=== PATIENT | female | born 1945 | race Caucasian/White ===

== ENCOUNTER 2024-03-11 07:35 | Day surgery (SDC) | payer OTHER ==
[~2024-03-11] VITALS: Ht 152.4 cm; Wt 54.4 kg
[2024-03-11] MEDS ORDERED: fentaNYL CITRATE/PF 100 MCG/2 ML AMP ONE (10:03)
[2024-03-11] MEDS ORDERED: BENZOCAINE 20% 0.5mL UD SPRAY MM ONE (10:04)
[2024-03-11] MEDS ORDERED: MIDAZOLAM HCL 5 MG/5 ML VIAL ONE (10:04)
[2024-03-11 14:34] VITALS: O2SAT 98
[2024-03-11 16:36] VITALS: BP_SYST 145; PULSE 83; RESP 26
== END 2024-03-11 12:40 | disposition home or self-care (01) ==
LOC: SMU 07:35 → SGI 07:35
PROVIDERS: ATTEND Student in an Organized Health Care Education/Training Program
DX: D50.0 Iron deficiency anemia secondary to blood loss (chronic) (principal); K29.50 Unspecified chronic gastritis without bleeding; K44.9 Diaphragmatic hernia without obstruction or gangrene; I10 Essential (primary) hypertension; E03.9 Hypothyroidism, unspecified; Z98.890 Other specified postprocedural states; Z79.890 Hormone replacement therapy; Z79.899 Other long term (current) drug therapy
CPT/HCPCS: 43239; 45378; 88305; 88312; 88313; J2250; J3010